=== PATIENT | female | born 1985 | race Caucasian/White ===

== ENCOUNTER 2016-11-06 12:49 | Emergency (ER) | payer MEDICAID ==
[~2016-11-06] VITALS: Ht 175.3 cm; Wt 73.7 kg
[2016-11-06 12:54] VITALS: BP 113/76
== END 2016-11-06 14:13 | disposition home or self-care (01) ==
LOC: ED 14:07
DX: K01.1 Impacted teeth (principal); J45.909 Unspecified asthma, uncomplicated
CPT/HCPCS: 99283

== ENCOUNTER 2018-02-17 07:53 | Emergency (ER) | payer MEDICAID ==
[~2018-02-17] VITALS: Ht 157.5 cm; Wt 73.7 kg
[2018-02-17 07:53] VITALS: BP 95/60
== END 2018-02-17 08:17 | disposition home or self-care (01) ==
LOC: ED 08:10
DX: L02.411 Cutaneous abscess of right axilla (principal)
CPT/HCPCS: 99282; 99283